=== PATIENT | male | born 1955 | race African-American/Black ===

== ENCOUNTER 2016-06-07 10:13 | Emergency (ER) | payer BC ==
[~2016-06-07] VITALS: Ht 167.6 cm; Wt 63.5 kg
--- NOTE | 2016-06-07 10:38 | PHYS DOC ---
Past Medical History Past Medical History: No Pertinent History Past Surgical History: Other Additional Past Surgical Histo: right 3-5th fingers Alcohol Use: None Drug Use: None Adult General Chief Complaint Chief Complaint: COUGH HPI HPI Patient is a 60 year old male who presents with a productive cough and sore throat intermittently for 3 weeks. Patient denies any fever. Patient is also complaining of shortness of breath on exertion. Patient states he believes he has influenza. Patient denies any chest pain. Denies any significant previous medical history. Patient denies any history of smoking. PCP is Dr. Walker Review of Systems Review of Systems Constitutional: see HPI Eyes: Denies change in visual acuity, redness, or eye pain [] HENT: sore throat [] Respiratory: cough and shortness of breath [] Cardiovascular: No additional information not addressed in HPI [] GI: Denies abdominal pain, nausea, vomiting, bloody stools or diarrhea [] : Denies dysuria or hematuria [] Musculoskeletal: Denies back pain or joint pain [] Integument: Denies rash or skin lesions [] Neurologic: Denies headache, focal weakness or sensory changes [] Endocrine: Denies polyuria or polydipsia [] Current Medications Current Medications Current Medications Medications (Trade) Dose Ordered Sig/Lora Start Time Stop Time Status Last Admin Dose Admin Albuterol/ Ipratropium (Duoneb) 3 ml 1X ONCE 06/07/16 10:45 06/07/16 10:46 DC 06/07/16 11:36 3 ML Azithromycin (Zithromax 500mg Ivpb For Omni) 250 ml @ 250 mls/hr 1X ONCE 06/07/16 12:00 06/07/16 12:59 DC Benzonatate 100 mg 100 mg 1X ONCE 06/07/16 10:45 06/07/16 10:46 DC 06/07/16 11:04 100 MG Ceftriaxone Sodium 50 ml @ 100 mls/hr 1X ONCE 06/07/16 12:00 06/07/16 12:29 DC Lidocaine HCl (Viscous Lidocaine) 15 ml 1X ONCE 06/07/16 10:45 06/07/16 10:46 DC 06/07/16 11:04 15 ML Prednisone (Prednisone) 60 mg 1X ONCE 06/07/16 10:45 06/07/16 10:46 DC 06/07/16 11:04 60 MG Allergies Allergies Allergies Coded Allergies Type Severity Reaction Last Updated Verified No Known Drug Allergies 06/07/16 No Physical Exam Physical Exam Constitutional: Well developed, well nourished, no acute distress, non-toxic appearance. [] HENT: Normocephalic, atraumatic, bilateral external ears normal, oropharynx moist, no oral exudates, nose normal. [] Eyes: PERRLA, EOMI, conjunctiva normal, no discharge. [] Neck: Normal range of motion, no tenderness, supple, no stridor. [] Cardiovascular:Heart rate regular rhythm, no murmur [] Lungs & Thorax: Bilateral breath sounds clear to auscultation [] Abdomen: Bowel sounds normal, soft, no tenderness, no masses, no pulsatile masses. [] Skin: Warm, dry, no erythema, no rash. [] Back: No tenderness, no CVA tenderness. [] Extremities: No tenderness, no cyanosis, no clubbing, ROM intact, no edema. [] Neurologic: Alert and oriented X 3, normal motor function, normal sensory function, no focal deficits noted. [] Psychologic: Affect normal, judgement normal, mood normal. [] Current Patient Data Vital Signs Vital Signs Date Time Temp Pulse Resp B/P Pulse Ox O2 Delivery O2 Flow Rate FiO2 06/07/16 12:55 74 18 135/88 95 Room Air 06/07/16 10:16 97.8 97.8 Lab Values Laboratory Tests Test 06/07/16 10:52 06/07/16 10:55 Influenza Type A Antigen Negative (NEGATIVE) Influenza Type B Antigen Negative (NEGATIVE) White Blood Count 5.8x10^3/uL (4.0-11.0) Red Blood Count 5.01x10^6/uL (4.30-5.70) Hemoglobin 13.8g/dL (13.0-17.5) Hematocrit 41.8% (39.0-53.0) Mean Corpuscular Volume 84fL (79-100) Mean Corpuscular Hemoglobin 28pg (25-35) Mean Corpuscular Hemoglobin Concent 33g/dL (31-37) Red Cell Distribution Width 13.4% (11.5-14.5) Platelet Count 358x10^3/uL (140-400) Neutrophils (%) (Auto) 73% (31-73) Lymphocytes (%) (Auto) 12% (24-48) L Monocytes (%) (Auto) 12% (0-9) H Eosinophils (%) (Auto) 2% (0-3) Basophils (%) (Auto) 1% (0-3) Neutrophils # (Auto) 4.2x10^3uL (1.8-7.7) Lymphocytes # (Auto) 0.7x10^3/uL (1.0-4.8) L Monocytes # (Auto) 0.7x10^3/uL (0.0-1.1) Eosinophils # (Auto) 0.1x10^3/uL (0.0-0.7) Basophils # (Auto) 0.0x10^3/uL (0.0-0.2) Prothrombin Time 13.6SEC (11.7-14.0) Prothrombin Time INR 1.1 (0.8-1.1) D-Dimer (Aylin) 0.40ug/mlFEU (0.00-0.50) Sodium Level 144mmol/L (136-145) Potassium Level 4.4mmol/L (3.5-5.1) Chloride Level 106mmol/L (98-107) Carbon Dioxide Level 30mmol/L (21-32) Anion Gap 8 (6-14) Blood Urea Nitrogen 22mg/dL (8-26) Creatinine 1.4mg/dL (0.7-1.3) H Estimated GFR (Cockcroft-Gault) 62.6 Glucose Level 100mg/dL (70-99) H Calcium Level 9.0mg/dL (8.5-10.1) Creatine Kinase 175U/L (39-308) Creatine Kinase MB (Mass) 0.8ng/mL (0.0-3.6) Creatine Kinase MB Relative Index 0.5% (0-4) Troponin I Quantitative < 0.017ng/mL (0.000-0.055) SR-Qrx-X-Type Natriuretic Peptide 60pg/mL (0-124) Laboratory Tests 06/07/16 10:55 Laboratory Tests 06/07/16 10:55 EKG EKG [] Radiology/Procedures Radiology/Procedures []PROCEDURE: CHEST AP ONLY Portable chest, 06/07/2016: History: Cough, throat pain The heart is within normal limits in size. There are moderate patchy bilateral pulmonary infiltrates. The underlying pulmonary vascularity appears to be within normal limits. No pleural fluid is seen. There is a mild thoracolumbar scoliosis. IMPRESSION: Moderate patchy bilateral pulmonary infiltrates suggesting pneumonia. Correlation with previous chest radiographs and/or radiographic follow-up is suggested to exclude chronic lung disease. DICTATED and SIGNED BY: PRIYA LEONARD MD DATE: 06/07/16 1053 CC: SHITAL WYNNE APRN ~ Course & Med Decision Making Course & Med Decision Making Pertinent Labs and Imaging studies reviewed. (See chart for details) Patient is in the ED with complaints of a productive cough and shortness of breath on exertion for one month. He was also complaining of a sore throat. CBC no acute findings, CMP with no acute findings. Negative for influenza A or B. Chest x-ray was noted for pneumonia bilaterally. Vitals are stable with O2 sats at 99%. Received Rocephin IV and first dose of clarithromycin. Patient was discharged with clarithromycin for 7 days. Instructed to follow-up with the PCP in 7 days. Provided return precautions Dragon Disclaimer Dragon Disclaimer This electronic medical record was generated, in whole or in part, using a voice recognition dictation system. Departure Departure Impression: Primary Impression: Community acquired pneumonia Disposition: 01 HOME, SELF-CARE Condition: STABLE Patient Instructions: Pneumonia, Adult Additional Instructions: Your chest x-ray shows you have pneumonia. Please take the prescribed antibiotics until they're completed. Come back to the ED at any point symptoms worsen including but not limited to having trouble breathing, chest pain, inability to take the medications prescribed. Follow-up with your doctor in the next 7 days. Scripts Guaifenesin/Codeine Phosphate (Guaifenesin-Codeine Syrup)118 Ml Liquid5 Ml PO Q6HRS #120 ML Prov:SHITAL WYNNE APRN 06/07/16 Albuterol Sulfate (Proair Respiclick)90 Mcg Aer.pow.ba1 Puff IH PRN Q6HRS PRN SHORTNESS OF BREATH #1 INHALER Prov:SHITAL WYNNE APRN 06/07/16 Clarithromycin 500 Mg Tablet1 Tab PO BID #14 TAB Prov:SHITAL WYNNE APRN 06/07/16 SHITAL WYNNE APRN Jun 07, 2016 10:38
[2016-06-07] MEDS ORDERED: PREDNISONE 20 MG TABLET PO ONE (10:45)
[2016-06-07] MEDS ORDERED: IPRATRPIUM/ALBUTEROL 0.5/2.5MG 3 ML NEBU. NEB ONE (10:45)
[2016-06-07] MEDS ORDERED: LIDOCAINE 2% VISCOUS 15 ML SOLUTION. SWSW ONE (10:45)
[2016-06-07] MEDS ORDERED: BENZONATATE 100 MG CAPSULE. PO ONE (10:45)
--- NOTE | 2016-06-07 10:57 | RAD ---
Portable chest, 06/07/2016: History: Cough, throat pain The heart is within normal limits in size. There are moderate patchy bilateral pulmonary infiltrates. The underlying pulmonary vascularity appears to be within normal limits. No pleural fluid is seen. There is a mild thoracolumbar scoliosis. IMPRESSION: Moderate patchy bilateral pulmonary infiltrates suggesting pneumonia. Correlation with previous chest radiographs and/or radiographic follow-up is suggested to exclude chronic lung disease.
[2016-06-07 11:13] LABS: BASO % 1 % (0-3); EOS % 2 % (0-3); HEMATOCRIT 41.8 % (39.0-53.0); HEMOGLOBIN 13.8 g/dL (13.0-17.5); LYMPH # 0.7 x10^3/uL (1.0-4.8); LYMPH % 12 % (24-48); MEAN CORPUSCULAR HEMOGLOBIN 28 pg (25-35); MEAN CORPUSCULAR HGB CONC 33 g/dL (31-37); MEAN CORPUSCULAR VOLUME 84 fL (79-100); MONO % 12 % (0-9); NEUT % 73 % (31-73); PLATELET COUNT 358 x10^3/uL (140-400); RED BLOOD COUNT 5.01 x10^6/uL (4.30-5.70); RED CELL DISTRIBUTION WIDTH 13.4 % (11.5-14.5); WHITE BLOOD COUNT 5.8 x10^3/uL (4.0-11.0)
[2016-06-07 11:23] LABS: INR 1.1 (0.8-1.1); PROTHROMBIN TIME PATIENT 13.6 SEC (11.7-14.0)
[2016-06-07 11:25] LABS: OBC FLU VALID
[2016-06-07 11:54] LABS: CREATININE 1.4 mg/dL (0.7-1.3); GFR 62.6; POTASSIUM 4.4 mmol/L (3.5-5.1)
--- NOTE | 2016-06-07 11:55 | EKG ---
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
[2016-06-07 12:00] LABS: CKMB INDEX 0.5 % (0-4); CKMB MASS 0.8 ng/mL (0.0-3.6)
[2016-06-07] MEDS ORDERED: CEFTRIAXONE 1GM IVPB FOR OMNI 50 ML IV ONE (12:00)
[2016-06-07] MEDS ORDERED: AZITHRMYCN 500MG IVPB FOR OMNI 250 ML IV ONE (12:00)
[2016-06-07] MEDS ORDERED: PROAIR RESPICL90 MCG IH (13:13)
[2016-06-07] MEDS ORDERED: CLAR500T PO (13:13)
[2016-06-07] MEDS ORDERED: GUAI118L13 PO (13:13)
[2016-06-07] MEDS ORDERED: CLARITHROMYCIN 500 MG TABLET PO STA (13:16)
[2016-06-07 13:20] LABS: NEGATIVE OBC STREP NEG; POSITIVE OBC STREP POS
[2016-06-07 13:23] VITALS: BP 141/93
== END 2016-06-07 13:42 | disposition home or self-care (01) ==
LOC: ER 10:13
DX: J18.9 Pneumonia, unspecified organism (principal)
CPT/HCPCS: 36415; 71010; 80048; 82553; 83880; 84484; 85027; 85379; 85610; 87070; 87804; 87880; 93005; 94640; 96365; 99285; J0690; J7512; J7620

== ENCOUNTER 2016-08-05 17:53 | Inpatient (IN) | payer BC ==
[~2016-08-05] VITALS: Ht 167.6 cm; Wt 57.2 kg
[~2016-08-05 17:53] MED LIST: CLAR500T PO; GUAI118L13 PO; PROAIR RESPICL90 MCG IH
--- NOTE | 2016-08-05 18:49 | ED.ADGEN ---
Past Medical History Past Medical History: Pneumonia Past Surgical History: Other Additional Past Surgical Histo: right 3-5th fingers Alcohol Use: None Drug Use: None Adult General Chief Complaint Chief Complaint: SHORTNESS OF BREATH HPI HPI Patient is a 60 year old man, who was recently treated for community acquired pneumonia, who presents to the emergency department with 2 weeks of cough productive of white sputum, with worsening shortness of breath and generalized malaise. He denies any fevers or chills, denies sick contacts, any travel or other exposures. Denies any weakness, numbness or tingling that is focal. Denies any chest pain except with coughing. Patient states that at this point he is unable to even walk from his bed to the bathroom without becoming short of breath and bringing on a significant amount of coughing. He has a remote history of tobacco use, but does not smoke currently. Denies any history of DVT or PE. Review of Systems Review of Systems Constitutional: Denies fever or chills. [] Eyes: Denies change in visual acuity. [] HENT: Denies nasal congestion or sore throat. [] Respiratory: Cough productive of thick white sputum, shortness of breath worsening over the past 2 weeks. Cardiovascular: Chest pain with cough, no edema. GI: Denies abdominal pain, nausea, vomiting, bloody stools or diarrhea. [] : Denies dysuria. [] Musculoskeletal: Denies back pain or joint pain. [] Integument: Denies rash. [] Neurologic: Denies headache, focal weakness or sensory changes. [] Endocrine: Denies polyuria or polydipsia. [] Lymphatic: Denies swollen glands. [] Psychiatric: Denies depression or anxiety. [] Allergies Allergies Allergies Coded Allergies Type Severity Reaction Last Updated Verified No Known Drug Allergies 06/07/16 No Physical Exam Physical Exam Constitutional: Well developed, well nourished, no acute distress, non-toxic appearance. [] HENT: Normocephalic, atraumatic, bilateral external ears normal, oropharynx moist, no oral exudates, nose normal. [] Eyes: PERRLA, EOMI, conjunctiva normal, no discharge. [] Neck: Normal range of motion, no tenderness, supple, no stridor. [] Cardiovascular:Heart rate regular rhythm, no murmur, S1, S2, no rubs or gallops. Lungs & Thorax: Patient with diminished breath sounds at bases bilaterally, mild coarse breath sounds in the right lung base, no wheezing. [] Abdomen: Bowel sounds normal, soft, no tenderness, no rebound, rigidity, no guarding, no masses, no pulsatile masses. [] Skin: Warm, dry, no erythema, no rash. [] Back: No tenderness, no CVA tenderness. [] Extremities: No tenderness, no cyanosis, no clubbing, ROM intact, no edema. Negative Homans sign. I [] Neurologic: Alert and oriented X 3, normal motor function, normal sensory function, no focal deficits noted. [] Psychologic: Affect normal, judgement normal, mood normal. [] Current Patient Data Vital Signs Vital Signs Date Time Temp Pulse Resp B/P (MAP) Pulse Ox O2 Delivery O2 Flow Rate FiO2 08/05/16 19:23 74 23 125/77 (93) 98 Room Air 08/05/16 18:35 98.3 98.3 Lab Values Laboratory Tests Test 08/05/16 18:58 White Blood Count 6.8 x10^3/uL (4.0-11.0) Red Blood Count 4.96 x10^6/uL (4.30-5.70) Hemoglobin 14.1 g/dL (13.0-17.5) Hematocrit 41.4 % (39.0-53.0) Mean Corpuscular Volume 83 fL (79-100) Mean Corpuscular Hemoglobin 28 pg (25-35) Mean Corpuscular Hemoglobin Concent 34 g/dL (31-37) Red Cell Distribution Width 13.4 % (11.5-14.5) Platelet Count 306 x10^3/uL (140-400) Neutrophils (%) (Auto) 76 % (31-73) H Lymphocytes (%) (Auto) 12 % (24-48) L Monocytes (%) (Auto) 11 % (0-9) H Eosinophils (%) (Auto) 1 % (0-3) Basophils (%) (Auto) 1 % (0-3) Neutrophils # (Auto) 5.2 x10^3uL (1.8-7.7) Lymphocytes # (Auto) 0.8 x10^3/uL (1.0-4.8) L Monocytes # (Auto) 0.7 x10^3/uL (0.0-1.1) Eosinophils # (Auto) 0.1 x10^3/uL (0.0-0.7) Basophils # (Auto) 0.0 x10^3/uL (0.0-0.2) Sodium Level 140 mmol/L (136-145) Potassium Level 3.7 mmol/L (3.5-5.1) Chloride Level 104 mmol/L (98-107) Carbon Dioxide Level 31 mmol/L (21-32) Anion Gap 5 (6-14) L Blood Urea Nitrogen 17 mg/dL (8-26) Creatinine 1.0 mg/dL (0.7-1.3) Estimated GFR (Cockcroft-Gault) 92.2 BUN/Creatinine Ratio 17 (6-20) Glucose Level 105 mg/dL (70-99) H Calcium Level 9.1 mg/dL (8.5-10.1) Total Bilirubin 0.6 mg/dL (0.2-1.0) Aspartate Amino Transferase (AST) 23 U/L (15-37) Alanine Aminotransferase (ALT) 22 U/L (16-63) Alkaline Phosphatase 69 U/L (46-116) Troponin I Quantitative < 0.017 ng/mL (0.000-0.055) QQ-Xzw-Z-Type Natriuretic Peptide 178 pg/mL (0-124) H Total Protein 8.2 g/dL (6.4-8.2) Albumin 3.2 g/dL (3.4-5.0) L Albumin/Globulin Ratio 0.6 (1.0-1.7) L Laboratory Tests 08/05/16 18:58 Laboratory Tests 08/05/16 18:58 EKG EKG EC: Sinus rhythm, heart rate 81 bpm, QTC of 420, CT 174, QRS of 128, mild baseline artifact noted, right bundle-branch block noted with repolarization, abnormal ECG, does not meet STEMI criteria. As interpreted by me. [] Radiology/Procedures Radiology/Procedures Chest x-ray: PA and lateral: 2 view: Patient with diffuse interstitial patchy infiltrates bilaterally, no significant change from patient's previous x-ray. No pneumothorax, normal cardiac silhouette, no effusions. As interpreted by me. [] Course & Med Decision Making Course & Med Decision Making Pertinent Labs and Imaging studies reviewed. (See chart for details) Patient complaining of worsening dyspnea with exertion, chest x-rays concerning for bilateral infiltrates, after discussion with patient bedside, all the laboratory studies are reveal any acutely concerning findings, will admit and change antibiotics to healthcare associated treatment, as patient was admitted to the Hospital about a month ago with similar symptoms and treated for community acquired pneumonia with recurrence of symptoms at this time. Patient agreeable with plan, initiated IV antibiotic in the ED without issue. Findings as above discussed with Dr. Small, on-call for the patient's primary care provider, patient accepted to her service as a full admission Patient has not previously been evaluated by pulmonary, therefore a consult was placed for Dr. Trejo for additional evaluation be performed. Patient received DuoNeb in the emergency department, will continue duo nebs, and supportive treatment, patient resting comfortably in sinus rhythm on the monitor, at time of transfer to the floor. Dragon Disclaimer Dragon Disclaimer This electronic medical record was generated, in whole or in part, using a voice recognition dictation system. Departure Impression: Primary Impression: HCAP (healthcare-associated pneumonia) Disposition: 09 ADMITTED INPATIENT Admitting Physician: Chris Small Condition: IMPROVED MITA PARR DO August 05, 2016 18:49
[2016-08-05 19:11] LABS: BASO % 1 % (0-3); EOS % 1 % (0-3); HEMATOCRIT 41.4 % (39.0-53.0); HEMOGLOBIN 14.1 g/dL (13.0-17.5); LYMPH # 0.8 x10^3/uL (1.0-4.8); LYMPH % 12 % (24-48); MEAN CORPUSCULAR HEMOGLOBIN 28 pg (25-35); MEAN CORPUSCULAR HGB CONC 34 g/dL (31-37); MEAN CORPUSCULAR VOLUME 83 fL (79-100); MONO % 11 % (0-9); NEUT % 76 % (31-73); PLATELET COUNT 306 x10^3/uL (140-400); RED BLOOD COUNT 4.96 x10^6/uL (4.30-5.70); RED CELL DISTRIBUTION WIDTH 13.4 % (11.5-14.5); WHITE BLOOD COUNT 6.8 x10^3/uL (4.0-11.0)
[2016-08-05 19:22] LABS: CALCIUM 9.1 mg/dL (8.5-10.1); GFR 92.2; POTASSIUM 3.7 mmol/L (3.5-5.1)
[2016-08-05 19:27] LABS: ALBUMIN 3.2 g/dL (3.4-5.0); ALBUMIN/GLOBULIN RATIO 0.6 (1.0-1.7); TOTAL BILIRUBIN 0.6 mg/dL (0.2-1.0); TOTAL PROTEIN 8.2 g/dL (6.4-8.2)
[2016-08-05] MEDS: CEFEPIME HCL 2 GM in IV NORMAL SALINE 100ML 100 ML IV SCH (20:16)
[2016-08-05] MEDS ORDERED: IPRATRPIUM/ALBUTEROL 0.5/2.5MG 3 ML NEBU. NEB ONE (20:30)
[2016-08-05] MEDS ORDERED: VANCOMYCIN 1.5 GM in IV NORMAL SALINE 500ML BAG 500 ML IV ONE (20:30)
[2016-08-05] MEDS: VANCOMYCIN PER PHARMACY MC PRN (20:57)
[2016-08-05 23:00] VITALS: BP 130/79
[2016-08-05] MEDS ORDERED: ACETAMINOPHEN 325 MG TABLET. PO PRN (23:00)
[2016-08-05] MEDS ORDERED: ONDANSETRON PF 4 MG/2 ML VIAL. IV PRN (23:00)
--- NOTE | 2016-08-06 02:01 | ACF ---
Admit Criteria Forms Admit Criteria Forms Admit Criteria Forms PULMONARY DISEASE GRG Clinical Indications for Admission to Inpatient Care ( Place 'X' for any and all applicable criteria): Hospital admission is needed for appropriate care of the patient because of ANY ONE of the following(1): [ ]I. Impending or actual respiratory arrest ( Use Respiratory Failure Criteria for severe respiratory disease and long-term mechanical ventilation patients) (4) [ ]II. Severe airflow or ventilation abnormalities (not responsive to emergency and observation care treatment as appropriate) as indicated by ANY ONE of the following(5)(6)(7)(8) : [ ]a) PCO2 > 42 mm Hg (5.6 kPa) and pH < 7.35 (new) [ ]b) Documented PCO2 increase > 5 mm Hg (0.7 kPa) from disease baseline [ ]c) Airflow measurements[A] < 60% of previous best or predicted ( e.g., PEF <300 L/minute) despite intensive emergent treatment[B] [ ]d) Required respiratory treatments that are performable only in acute inpatient setting [ ]III. Severe respiratory findings (not responsive to emergency and observation care treatment as appropriate) including ANY ONE of the following(5)(8)(9): [ ]a) Respiratory distress as indicated by ALL of the following(5)(10): [ ]i) Patient with ANY ONE of the following: [ ]1) Dyspnea (difficulty breathing) [ ]2) Abnormal breathing pattern (eg, chest retractions) [ ]3) Tachypnea [ ]4) Other evidence of difficulty breathing [ ]ii) Evidence of respiratory compromise indicated by ANY ONE of the following: [ ]1) Hypoxemia [ ]2) Altered mental status [ ]3) Other evidence of respiratory compromise (eg, pulmonary edema on chest x-ray) [ ]b) Stridor [ ]c) Gross hemoptysis(11) [ ]d) Acute cyanosis [X ]IV. High-risk pulmonary infection as indicated by ANY ONE of the following (19)(20)(21)(22): [ ]a) Temperature less than 95 degrees F(35 degrees C) or greater than 103.1 degrees F(39.5 degrees C) [ ]b) Hemodynamic instability that remains after emergency or observation level care (as appropriate) [ ]c) Immunocompromised patient (eg, AIDS, post transplant, neutropenic) [ ]d) History of severe COPD [ ]e) History of severely symptomatic congestive heart failure [ ]f) Other high-risk comorbidity (eg, poorly controlled diabetes, cirrhosis, chronic renal insufficiency) [ ]g) Hypoxemia (new) [X]h) Outpatient, observation, or recovery facility therapy has failed, is not appropriate, or is not feasible [ ]V. Severe atelectasis or lung collapse(15)(16) [ ]. Tuberculosis requiring inpatient treatment as indicated by ANY ONE of the following(17)(18): [ ]a) New positive acid-fast bacilli sputum smear [ ]b) Positive acid-fast bacilli smear (under current treatment), with ANY ONE of the following: [ ]i) Unexposed household contacts [ ]ii) Infants or immunosuppressed household contacts [ ]iii) Patient unable or unwilling to avoid exposing others [ ]iv) Severe immunocompromised patient (eg, AIDS, post transplant, neutropenic) [ ]VII. Empyema or lung abscess(13)(14) [ ]VIII. Severe pulmonary arterial hypertension or pulmonary vascular disease requiring inpatient care indicated by ANY ONE of the following(24)(25): [ ]a) Initiation or change of vasodilators (IV, subcutaneous, or inhaled) or other vasoactive medications needed [ ]b) IV anticoagulation needed (eg, immediate anticoagulation necessary, alternatives not appropriate) [ ]c) Arterial or pulmonary artery catheter monitoring needed due to infusion or other treatment [ ]IX. Chronic lung disease with severe deterioration (not responsive to emergency and observation care treatment as appropriate) as indicated by ANY ONE of the following (6)(12): [ ]a) SaO2 5% below baseline in patient with chronic hypoxemia [ ]b) New requirement for supplemental oxygen to keep SaO2 at baseline or acceptable level [ ]c) Required supplemental oxygen performable only in acute inpatient setting [ ]d) Severe airflow or ventilation abnormalities [ ]e) Rapid rate of exacerbation onset [ ]f) Previously mobile patient unable to walk between rooms [ ]g) Inability to eat or sleep due to dyspnea [ ]h) Altered mental status [ ]X. Cystic fibrosis with severe deterioration as indicated by ANY ONE of the following(26)(27): [ ]a) Severe exacerbation that does not respond to intensified home therapy [ ]b) Pneumonia [ ]c) Hemoptysis [ ]d) Atelectasis [ ]e) Pneumothorax [ ]f) Respiratory failure [ ]g) Severe exacerbation with patient unable to perform prescribed treatments at home [ ]XI. Severe right heart failure as indicated by ANY ONE of the following(24) (25): [ ]a) Increasing organ failure (eg, liver congestion with significant and worsening or new elevation of transaminases) [ ]b) Anasarca [ ]c) Angina that requires inpatient care (eg, not treatable in emergency or observation level of care) [ ]d) Respiratory distress [ ]e) Syncope [ ]f) SBP < 90 mm Hg (new) [ ]XII. Injury requiring inpatient care (medical) as indicated by ANY ONE of the following(28): [ ]a) Significant inhalation injury (eg, smoke inhalation, other toxic inhalation) (29)(30)(31) [ ]b) Airway obstruction that remains or is unstable after emergency or observation level care(32) [ ]c) Severe pain requiring acute inpatient management [ ]d) Lung contusion [ ]e) Bronchial tree injury [ ]f) Air or fat emboli(33) [ ]g) Other injury not treatable in emergency or observation level care (eg, hemothorax) (34) [ ]XIII. Pulmonary hemorrhage or significant hemoptysis(11)(35)(36) [ ]XIV. Inpatient palliative care needed[C](37)(38)(39)(40) [ ]XV. Complications of lung transplant (eg, rejection, failure, respiratory infection) (23) [ ]XVI. Pulmonary Disease and ANY ONE of the following: [ ]a) General Admission Criteria [ ]b) Pediatric General Admission Criteria The original [facility] content created by [facility] has been revised. The portions of the content which have been revised are identified through the use of italic text or in bold, and [facility] has neither reviewed nor approved the modified material. All other unmodified content is copyright [facility]. Please see references footnoted in the original [facility] edition 2016 KEITH MANDEL August 06, 2016 02:01
[2016-08-06 03:00] VITALS: BP 115/83
[2016-08-06 05:18] LABS: BASO % 1 % (0-3); EOS % 3 % (0-3); HEMATOCRIT 40.1 % (39.0-53.0); HEMOGLOBIN 13.6 g/dL (13.0-17.5); LYMPH # 0.9 x10^3/uL (1.0-4.8); LYMPH % 20 % (24-48); MEAN CORPUSCULAR HEMOGLOBIN 29 pg (25-35); MEAN CORPUSCULAR HGB CONC 34 g/dL (31-37); MEAN CORPUSCULAR VOLUME 84 fL (79-100); MONO % 15 % (0-9); NEUT % 61 % (31-73); PLATELET COUNT 280 x10^3/uL (140-400); RED BLOOD COUNT 4.78 x10^6/uL (4.30-5.70); RED CELL DISTRIBUTION WIDTH 13.6 % (11.5-14.5); WHITE BLOOD COUNT 4.4 x10^3/uL (4.0-11.0)
[2016-08-06 05:42] LABS: CALCIUM 8.6 mg/dL (8.5-10.1); CREATININE 0.8 mg/dL (0.7-1.3); GFR 119.3; POTASSIUM 3.8 mmol/L (3.5-5.1)
[2016-08-06] MEDS: CEFEPIME HCL 2 GM in IV NORMAL SALINE 100ML 100 ML IV SCH ×3 (05:51→22:00)
--- NOTE | 2016-08-06 06:17 | EKG ---
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
[2016-08-06 07:00] VITALS: BP 124/78
[2016-08-06] MEDS: IPRATRPIUM/ALBUTEROL 0.5/2.5MG 3 ML NEBU. NEB SCH ×4 (07:45→19:22)
[2016-08-06] MEDS: VANCOMYCIN 750 MG in IV NORMAL SALINE 250ML 250 ML IV SCH ×2 (08:08→20:38)
--- NOTE | 2016-08-06 08:41 | RAD ---
Chest, 2 views, 08/05/2016: History: Shortness of breath, cough Comparison is made to a study from 08/01/2016. The heart is within normal limits in size. There are moderate reticulonodular interstitial type opacities in both lungs with dominant involvement of the lower lung dixon. These have been present on radiographs dating back to 06/07/2016 with no definite change. There is no evidence of pleural fluid or pneumothorax. No new abnormality is detected. There is a mild thoracolumbar scoliosis. IMPRESSION: Unchanged moderate bilateral interstitial opacities suggesting chronic interstitial lung disease.
[2016-08-06 11:00] VITALS: BP 113/67
--- NOTE | 2016-08-06 12:20 | PDOC ---
OBJECTIVE Vital Signs Vital Signs Date Time Temp Pulse Resp B/P (MAP) Pulse Ox O2 Delivery O2 Flow Rate FiO2 08/06/16 11:26 95 Room Air 08/06/16 11:00 97.6 65 18 113/67 (82) 97 Room Air 97.6 08/06/16 08:00 Room Air 08/06/16 07:49 99 Room Air 08/06/16 07:00 97.8 67 18 124/78 (93) 97 Room Air 97.8 08/06/16 03:00 98.3 63 20 115/83 (94) 96 Room Air 98.3 08/05/16 23:00 97.9 74 20 130/79 (96) 97 Room Air 97.9 08/05/16 22:31 Room Air 08/05/16 21:44 96 Room Air 08/05/16 19:23 74 23 125/77 (93) 98 Room Air 08/05/16 18:53 76 26 128/73 (91) 97 Room Air 08/05/16 18:38 84 28 133/84 (100) 94 Room Air 08/05/16 18:35 98.3 104 24 130/75 (93) 95 Room Air 98.3 I & O Intake and Output 08/06/16 06:59 Intake Total 200 ml Output Total 0 ml Balance 200 ml Intake Oral 0 ml IV Total 200 ml Output Urine Total 0 ml ASSESSMENT/PLAN Assessment/Plan [id number] H&P dictated Problems: COMMENT Lab Laboratory Tests Test 08/05/16 18:58 08/06/16 04:25 White Blood Count 6.8 x10^3/uL (4.0-11.0) 4.4 x10^3/uL (4.0-11.0) Red Blood Count 4.96 x10^6/uL (4.30-5.70) 4.78 x10^6/uL (4.30-5.70) Hemoglobin 14.1 g/dL (13.0-17.5) 13.6 g/dL (13.0-17.5) Hematocrit 41.4 % (39.0-53.0) 40.1 % (39.0-53.0) Mean Corpuscular Volume 83 fL (79-100) 84 fL (79-100) Mean Corpuscular Hemoglobin 28 pg (25-35) 29 pg (25-35) Mean Corpuscular Hemoglobin Concent 34 g/dL (31-37) 34 g/dL (31-37) Red Cell Distribution Width 13.4 % (11.5-14.5) 13.6 % (11.5-14.5) Platelet Count 306 x10^3/uL (140-400) 280 x10^3/uL (140-400) Neutrophils (%) (Auto) 76 % (31-73) 61 % (31-73) Lymphocytes (%) (Auto) 12 % (24-48) 20 % (24-48) Monocytes (%) (Auto) 11 % (0-9) 15 % (0-9) Eosinophils (%) (Auto) 1 % (0-3) 3 % (0-3) Basophils (%) (Auto) 1 % (0-3) 1 % (0-3) Neutrophils # (Auto) 5.2 x10^3uL (1.8-7.7) 2.7 x10^3uL (1.8-7.7) Lymphocytes # (Auto) 0.8 x10^3/uL (1.0-4.8) 0.9 x10^3/uL (1.0-4.8) Monocytes # (Auto) 0.7 x10^3/uL (0.0-1.1) 0.6 x10^3/uL (0.0-1.1) Eosinophils # (Auto) 0.1 x10^3/uL (0.0-0.7) 0.1 x10^3/uL (0.0-0.7) Basophils # (Auto) 0.0 x10^3/uL (0.0-0.2) 0.0 x10^3/uL (0.0-0.2) Sodium Level 140 mmol/L (136-145) 140 mmol/L (136-145) Potassium Level 3.7 mmol/L (3.5-5.1) 3.8 mmol/L (3.5-5.1) Chloride Level 104 mmol/L (98-107) 105 mmol/L (98-107) Carbon Dioxide Level 31 mmol/L (21-32) 29 mmol/L (21-32) Anion Gap 5 (6-14) 6 (6-14) Blood Urea Nitrogen 17 mg/dL (8-26) 17 mg/dL (8-26) Creatinine 1.0 mg/dL (0.7-1.3) 0.8 mg/dL (0.7-1.3) Estimated GFR (Cockcroft-Gault) 92.2 119.3 BUN/Creatinine Ratio 17 (6-20) Glucose Level 105 mg/dL (70-99) 81 mg/dL (70-99) Calcium Level 9.1 mg/dL (8.5-10.1) 8.6 mg/dL (8.5-10.1) Total Bilirubin 0.6 mg/dL (0.2-1.0) Aspartate Amino Transf (AST/SGOT) 23 U/L (15-37) Alanine Aminotransferase (ALT/SGPT) 22 U/L (16-63) Alkaline Phosphatase 69 U/L (46-116) Troponin I Quantitative < 0.017 ng/mL (0.000-0.055) OD-Krv-F-Type Natriuretic Peptide 178 pg/mL (0-124) Total Protein 8.2 g/dL (6.4-8.2) Albumin 3.2 g/dL (3.4-5.0) Albumin/Globulin Ratio 0.6 (1.0-1.7) NAILA WYNNE MD August 06, 2016 12:20
--- NOTE | 2016-08-06 12:36 | PDOC ---
Provider Note Provider Note dictated persistent lung disease, could be diffuse alveolar damage due to crack cocaine vs stage III sarcoidosis see orders DEISY GRUBER MD August 06, 2016 12:36
[2016-08-06] MEDS ORDERED: IOHEXOL 300 MG/ML 75 ML VIAL IV ONE (13:15)
--- NOTE | 2016-08-06 13:29 | CONS ---
DATE OF CONSULTATION: ATTENDING PHYSICIAN: Dr. Chris Small. REASON FOR CONSULTATION: Abnormal chest x-ray, cough and dyspnea. HISTORY OF PRESENT ILLNESS: The patient is a 60-year-old male who has been having shortness of breath for the past 2 months. He also has a nonresolving cough for the same duration with some mild shortness of breath. He has a history of cocaine use for 10 years; he quit one year ago. The patient was brought into the hospital with increasing dyspnea and a persistent cough. No fever, no chills, cough has been nonproductive, no weight loss. The patient has a remote history of tobacco use. He works for [employer]. No occupational exposures. The patient has no pets at home. No history of any interstitial lung disease. I reviewed his chest x-ray from May and now as well and all the x-ray shows persistent bilateral interstitial infiltrates with one versus the other with slight worsening. He never had any workup of interstitial lung disease in the past admission. 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 PAST SURGICAL HISTORY: As above. ALLERGIES: None. MEDICATIONS: All reviewed as listed in the MRAD, including broad spectrum antibiotic. REVIEW OF SYSTEMS: Twelve-point systems review was obtained, pertinent positives discussed in history of present illness, otherwise noncontributory. All systems that were negative were reviewed as well. SOCIAL HISTORY: History of inhalation of crack cocaine for 10 years and history of tobacco use in the past. PHYSICAL EXAMINATION: VITAL SIGNS: Blood pressure of 113/67, afebrile, pulse ox is 97% on room air. NECK: Supple. No JVD. LUNGS: With crackles at both the bases. CARDIOVASCULAR: Regular rate and rhythm. ABDOMEN: Soft. EXTREMITIES: With no pitting edema. There are amputations of his right third to fifth fingers. LABORATORY DATA: Reviewed. White cell count 4.4, hemoglobin 13.6 and platelets are 280. BUN is 17, creatinine 0.8. Albumin 3.2. IMPRESSION: 1. Persistent dyspnea and cough for the last 2 months with persistent interstitial infiltrates since 05/2016. I think we are dealing with interstitial lung disease. The following would be the differential diagnosis: a. Possibility of diffuse alveolar damage related to inhalation of crack cocaine b. Possible sarcoidosis would also be a consideration. 2. Clinically, unlikely other connective tissue disease related to interstitial lung disease. 3. Less likely pneumonia. RECOMMENDATIONS: 1. Discussed with the patient his abnormal chest x-ray findings. At this point, I would like to do a CT chest with contrast. 2. Once CT chest findings are available, we will decide about it, either a trial of steroids versus going with lung biopsy. 3. Obtain sed rate. 4. The patient no longer does crack cocaine. 5. Continue empiric antibiotics for now. 6. Further recommendations to follow after the CT chest. DEISY GRUBER MD DR: MALIKA/mere JOB#: [id number] / [id number] SAMY
--- NOTE | 2016-08-06 14:05 | PREOP HP ---
DATE OF SERVICE: [facility] NUMBER: [id number]. LOCATION: He is in room 510. HISTORY OF PRESENT ILLNESS: The patient is a 60-year-old gentleman who recently was discharged from the hospital after being treated for community-acquired pneumonia, presented to the Emergency Room yesterday with increasing shortness of breath and cough over the last couple of weeks. He quit smoking about 6 months ago, but has smoked for many years before that. He does state that his cough is productive of white sputum and sometimes a dry cough. He does have worsening shortness of breath, generalized fatigue. He denies fever or chills. Denies being around sick people. Denies any recent travel or exposure. Denies focal changes in his sensory or motor function. Denies chest pain except when he is coughing. Denies pleuritic chest pain. He stated that his level of activities has decreased due to the shortness of breath and coughing. He denies history of DVT or pulmonary embolus. PAST MEDICAL HISTORY: Significant for pneumonia and COPD. REVIEW OF SYSTEMS: CONSTITUTIONAL: Denies fever or chills. Denies weight loss. EYES: Denies changes in his vision. HENT: Denies nasal congestion or sore throat. RESPIRATORY: He does have cough productive of thick whitish sputum, shortness of breath, worsening in the past 2 weeks. CARDIOVASCULAR: Denies chest pain except when he is coughing, no edema. GASTROINTESTINAL: Denies nausea, vomiting, abdominal pain, or diarrhea. GENITOURINARY: Denies dysuria. MUSCULOSKELETAL: Denies joint pain more than usual. NEUROLOGIC: Denies focal weakness or sensory changes. DERMATOLOGY: Denies rashes. PHYSICAL EXAMINATION: GENERAL: He is alert and oriented. HEENT: His tympanic membranes clear. Pharynx clear. Mucous membranes slightly dry. NECK: Supple. LUNGS: With diminished breath sounds bilaterally. Mild coarse breath sounds, no wheezes. HEART: Regular rate and rhythm. ABDOMEN: Soft, nontender, no organomegaly, no masses, no bruits, no ascites. EXTREMITIES: No edema, clubbing, or cyanosis. NEUROLOGICAL: Without any acute changes. IMPRESSION: 1. Bilateral infiltrates, possible pulmonary fibrosis. This has not changed comparing to his prior chest x-ray rule out another pneumonia. 2. Chronic obstructive pulmonary disease. 3. Increasing shortness of breath and cough. PLAN: The patient is admitted, started on antibiotic. Pulmonary was consulted. NAILA WYNNE MD DR: MIKE/mere JOB#: [id number] / [id number]
[2016-08-06] MEDS: VANCOMYCIN PER PHARMACY MC PRN (14:18)
[2016-08-06 15:00] VITALS: BP 131/71
--- NOTE | 2016-08-06 15:40 | RAD ---
Examination: CT chest with IV contrast History: History of diffuse interstitial lung disease, shortness of breath. Comparison: None available Technique: Axial CT images of the chest were performed with IV contrast. Coronal and sagittal reformats were performed. PQRS Compliance Statement: One or more of the following individualized dose reduction techniques were utilized for this examination: 1. Automated exposure control 2. Adjustment of the mA and/or kV according to patient size 3. Use of iterative reconstruction technique Findings: The heart size grossly appears unremarkable. The central airways are patent. The visualized thyroid gland grossly appears unremarkable. The caliber of the aorta grossly appears unremarkable. No evidence of pericardial effusion identified. Mild prominent appearing bilateral hilar lymphadenopathy identified measuring 2 cm on the right and 1.4 cm in the left Diffuse bilateral prominent interlobular septal thickening with prominent interstitial lung markings identified in the bilateral lungs predominantly in the mid and lower lobe lung regions. No evidence of pleural effusion or pneumothorax identified Mild bronchiectatic changes identified in the bilateral lungs. No evidence of pleural effusion or pneumothorax identified The visualized liver, spleen, adrenals grossly appears unremarkable No evidence of lytic bony destructive lesion identified. Impression: 1. Diffuse bilateral septal thickening with prominent appearing interstitium. Differential includes sarcoidosis, hypersensitivity pneumonitis, respiratory bronchiolitis, interstitial fibrosis with overlying interstitial infiltrates or pneumonia. 2. Mild bronchiectatic changes identified in the bilateral lungs. 3. Small bilateral hilar lymphadenopathy.
[2016-08-06 19:00] VITALS: BP 125/76
[2016-08-06 23:05] VITALS: BP 141/94
[2016-08-07 03:00] VITALS: BP 128/79
[2016-08-07] MEDS: CEFEPIME HCL 2 GM in IV NORMAL SALINE 100ML 100 ML IV SCH ×3 (04:53→20:53)
[2016-08-07 07:00] VITALS: BP 125/79
[2016-08-07] MEDS: IPRATRPIUM/ALBUTEROL 0.5/2.5MG 3 ML NEBU. NEB SCH ×2 (07:14→19:59)
--- NOTE | 2016-08-07 09:25 | PDOC ---
PULMONARY PROGRESS NOTES Subjective no soa Vitals Vital Signs Date Time Temp Pulse Resp B/P (MAP) Pulse Ox O2 Delivery O2 Flow Rate FiO2 08/07/16 08:00 Room Air 08/07/16 07:16 96 08/07/16 07:00 97.5 65 18 125/79 (94) 97.5 General: Alert, No acute distress Lungs: Crackles (bases) Cardiovascular: S1 Abdomen: Soft Neuro Exam: Alert Extremities: No Edema Skin: Warm Labs Laboratory Tests Test 08/05/16 18:58 08/06/16 04:25 08/06/16 12:45 08/07/16 08:25 White Blood Count 6.8 x10^3/uL (4.0-11.0) 4.4 x10^3/uL (4.0-11.0) Red Blood Count 4.96 x10^6/uL (4.30-5.70) 4.78 x10^6/uL (4.30-5.70) Hemoglobin 14.1 g/dL (13.0-17.5) 13.6 g/dL (13.0-17.5) Hematocrit 41.4 % (39.0-53.0) 40.1 % (39.0-53.0) Mean Corpuscular Volume 83 fL (79-100) 84 fL (79-100) Mean Corpuscular Hemoglobin 28 pg (25-35) 29 pg (25-35) Mean Corpuscular Hemoglobin Concent 34 g/dL (31-37) 34 g/dL (31-37) Red Cell Distribution Width 13.4 % (11.5-14.5) 13.6 % (11.5-14.5) Platelet Count 306 x10^3/uL (140-400) 280 x10^3/uL (140-400) Neutrophils (%) (Auto) 76 % (31-73) 61 % (31-73) Lymphocytes (%) (Auto) 12 % (24-48) 20 % (24-48) Monocytes (%) (Auto) 11 % (0-9) 15 % (0-9) Eosinophils (%) (Auto) 1 % (0-3) 3 % (0-3) Basophils (%) (Auto) 1 % (0-3) 1 % (0-3) Neutrophils # (Auto) 5.2 x10^3uL (1.8-7.7) 2.7 x10^3uL (1.8-7.7) Lymphocytes # (Auto) 0.8 x10^3/uL (1.0-4.8) 0.9 x10^3/uL (1.0-4.8) Monocytes # (Auto) 0.7 x10^3/uL (0.0-1.1) 0.6 x10^3/uL (0.0-1.1) Eosinophils # (Auto) 0.1 x10^3/uL (0.0-0.7) 0.1 x10^3/uL (0.0-0.7) Basophils # (Auto) 0.0 x10^3/uL (0.0-0.2) 0.0 x10^3/uL (0.0-0.2) Sodium Level 140 mmol/L (136-145) 140 mmol/L (136-145) Potassium Level 3.7 mmol/L (3.5-5.1) 3.8 mmol/L (3.5-5.1) Chloride Level 104 mmol/L (98-107) 105 mmol/L (98-107) Carbon Dioxide Level 31 mmol/L (21-32) 29 mmol/L (21-32) Anion Gap 5 (6-14) 6 (6-14) Blood Urea Nitrogen 17 mg/dL (8-26) 17 mg/dL (8-26) Creatinine 1.0 mg/dL (0.7-1.3) 0.8 mg/dL (0.7-1.3) Estimated GFR (Cockcroft-Gault) 92.2 119.3 BUN/Creatinine Ratio 17 (6-20) Glucose Level 105 mg/dL (70-99) 81 mg/dL (70-99) Calcium Level 9.1 mg/dL (8.5-10.1) 8.6 mg/dL (8.5-10.1) Total Bilirubin 0.6 mg/dL (0.2-1.0) Aspartate Amino Transf (AST/SGOT) 23 U/L (15-37) Alanine Aminotransferase (ALT/SGPT) 22 U/L (16-63) Alkaline Phosphatase 69 U/L (46-116) Troponin I Quantitative < 0.017 ng/mL (0.000-0.055) NB-Eni-U-Type Natriuretic Peptide 178 pg/mL (0-124) Total Protein 8.2 g/dL (6.4-8.2) Albumin 3.2 g/dL (3.4-5.0) Albumin/Globulin Ratio 0.6 (1.0-1.7) Erythrocyte Sedimentation Rate 30 (0-15) Vancomycin Level Trough 6.9 mcg/mL (10.0-20.0) Vancomycin Last Dose Date 08/06/16 Vancomycin Last Dose Time 2100 Laboratory Tests Test 08/06/16 12:45 08/07/16 08:25 Erythrocyte Sedimentation Rate 30 (0-15) Vancomycin Level Trough 6.9 mcg/mL (10.0-20.0) Vancomycin Last Dose Date 08/06/16 Vancomycin Last Dose Time 2100 Medications Active Scripts Medications Dose Route/Sig Max Daily Dose Days Date Category Guaifenesin-Codeine Syrup (Guaifenesin/Codeine Phosphate) 118 Ml Liquid 5 Ml PO Q6HRS 06/07/16 Rx Proair Respiclick (Albuterol Sulfate) 90 Mcg Aer.pow.ba 1 Puff IH PRN Q6HRS PRN 06/07/16 Rx Clarithromycin 500 Mg Tablet 1 Tab PO BID 06/07/16 Rx Impression . 1. Persistent dyspnea and cough for the last 2 months with persistent interstitial infiltrates since 05/2016. Ct chest with diffuse interstitial lung disease, mild hilar adenopathy. The following would be the differential diagnosis: a. Possibility of a diffuse alveolar damage related to inhalation of crack cocaine b. Possible stage II sarcoidosis 2. Clinically, unlikely other connective tissue disease related to interstitial lung disease. 3. Less likely pneumonia. Plan . 1. Discussed with the patient his abnormal chest x-ray/ ct chest findings. At this point the etiology is not so obvious. Sarcoidosis is still likely although I would have expected more upper lobe involvement. I gave the option of 6-8 weeks of emperic steroid trial and explained side effects vs persuing with VAT for definite diagnosis 2. Patient agrees for lung biopsy via VAT/ consult [facility] 3. sed rate not so high 4. The patient no longer does crack cocaine. 5. antibiotics can be weaned off DEISY GRUBER MD August 07, 2016 09:25
[2016-08-07] MEDS: VANCOMYCIN PER PHARMACY MC PRN (09:43)
--- NOTE | 2016-08-07 10:18 | PDOC ---
SUBJECTIVE Subjective no new complaints OBJECTIVE Vital Signs Vital Signs Date Time Temp Pulse Resp B/P (MAP) Pulse Ox O2 Delivery O2 Flow Rate FiO2 08/07/16 08:00 Room Air 08/07/16 08:00 Room Air 08/07/16 07:16 96 Room Air 08/07/16 07:00 97.5 65 18 125/79 (94) 97 Room Air 97.5 08/07/16 03:00 97.9 59 20 128/79 (95) 97 Room Air 97.9 08/06/16 23:05 97.9 62 20 141/94 (110) 96 Room Air 97.9 08/06/16 20:00 Room Air 08/06/16 19:23 96 Room Air 08/06/16 19:00 97.9 69 20 125/76 (92) 96 Room Air 97.9 08/06/16 15:42 99 Room Air 08/06/16 15:00 97.0 70 18 131/71 (91) 96 Room Air 97.0 08/06/16 11:26 95 Room Air 08/06/16 11:00 97.6 65 18 113/67 (82) 97 Room Air 97.6 I & O Intake and Output 08/07/16 07:00 Intake Total 1070 ml Output Total 2 ml Balance 1068 ml Intake Oral 720 ml IV Total 350 ml Output Urine Total 2 ml PHYSICAL EXAM Physical Exam lungs with decrease BS no change in exam ASSESSMENT/PLAN Assessment/Plan 1. Bilateral infiltrates, CT noted agree with bronch and Bx 2. Chronic obstructive pulmonary disease. 3. Increasing shortness of breath and cough. Problems: COMMENT Lab Laboratory Tests Test 08/06/16 12:45 08/07/16 08:25 Erythrocyte Sedimentation Rate 30 (0-15) Vancomycin Level Trough 6.9 mcg/mL (10.0-20.0) Vancomycin Last Dose Date 08/06/16 Vancomycin Last Dose Time 2100 NAILA WYNNE MD August 07, 2016 10:18
[2016-08-07] MEDS: VANCOMYCIN 1 GM in IV NORMAL SALINE 250ML 250 ML IV SCH ×2 (10:31→17:56)
[2016-08-07] MEDS ORDERED: IV RINGERS,LACTATED 1000ML 1,000 ML IV SCH (10:35)
[2016-08-07] MEDS ORDERED: PROCHLORPERAZINE 10 MG/2 ML VIAL. IV PRN (10:45)
[2016-08-07] MEDS ORDERED: LIDOCAINE 1% 1 ML SYRINGE. ID PRN (10:45)
[2016-08-07 10:59] VITALS: BP 126/82
--- NOTE | 2016-08-07 11:04 | PDOC2 ---
CONSULT Date of Consult Date of Consult DATE: 08/07/16 TIME: 10:52 Reason for Consult Reason for Consult: Interstitial lung disease Referring Physician Referring Physician: Sudhakar Rose MD Identification/Chief Complaint Chief Complaint SOB Source Source: Chart review, Patient History of Present Illness Reason for Visit: Mr Bautista is a 60-year-old male with a lifelong history of smoking, who presents with a two-month history of increasing shortness of breath and nonproductive cough. He was admitted to the hospital in May for presumed pneumonia. His symptoms have never really resolved, and has recently worsened. The patient also has a history of smoking crack cocaine. A CT of the chest has demonstrated bilateral interstitial infiltrates with some mediastinal lymphadenopathy, consistent with possible interstitial lung disease versus chronic infection. The patient is currently breathing comfortably on room air. I was consulted to consider the patient for a VATS lung biopsy, which would guide us for his treatment. Past Medical History Cardiovascular: No pertinent hx Pulmonary: Pneumonia GI: No pertinent hx Heme/Onc: No pertinent hx Hepatobiliary: No pertinent hx Psych: No pertinent hx Rheumatologic: No pertinent hx Infectious disease: No pertinent hx ENT: No pertinent hx Renal/: No pertinent hx Endocrine: No pertinent hx Dermatology: No pertinent hx Past Surgical History Past Surgical History: No pertinent history Family History Family History: No Significant Social History 1 pack per day ALCOHOL: social Drugs: Cocaine Lives: with Family Current Problem List Problem List Problems Medical Problems: (1) HCAP (healthcare-associated pneumonia) Status: Acute Current Medications Current Medications Current Medications Cefepime HCl 2 gm/ Sodium Chloride 100 ml @ 200 mls/hr Q8HRS IV Last administered on 08/07/16 04:53; Start 08/05/16 at 20:00 Vancomycin HCl (Vanco Per Pharmacy) 1 each PRN DAILY PRN MC SEE COMMENTS Last administered on 08/07/16 09:43; Start 08/05/16 at 20:00 Vancomycin HCl 1.5 gm/Sodium Chloride 500 ml @ 250 mls/hr 1X ONCE IV Last administered on 08/05/16 20:45; Start 08/05/16 at 20:30; Stop 08/05/16 at 22:29 ; Status DC Albuterol/ Ipratropium (Duoneb) 3 ml 1X ONCE NEB Last administered on 21:43; Start 08/05/16 at 20:30; Stop 08/05/16 at 20:31; Status DC Vancomycin HCl 750 mg/Sodium Chloride 250 ml @ 250 mls/hr Q12HR IV Last administered on 08/06/16 20:38; Start 08/06/16 at 09:00; Stop 08/07/16 at 09:31 ; Status DC Vancomycin HCl 1 each 1X ONCE MC Last administered on 08/07/16 08:30; Start 08/07/16 at 08:30; Stop 08/07/16 at 08:31; Status DC Ondansetron HCl (Zofran) 4 mg PRN Q8HRS PRN IV NAUSEA/VOMITING; Start 08/05/16 at 23:00; Stop 08/06/16 at 22:59; Status DC Acetaminophen (Tylenol) 650 mg PRN Q4HRS PRN PO FEVER; Start 08/05/16 at 23:00 ; Stop 08/06/16 at 22:59; Status DC Albuterol/ Ipratropium (Duoneb) 3 ml RTQID NEB Last administered on 08/07/16 07:14; Start 08/06/16 at 08:00; Stop 08/07/16 at 07:59; Status DC Iohexol (Omnipaque 300 Mg/ml) 75 ml 1X ONCE IV Last administered on 08/06/16 13:15; Start 08/06/16 at 13:15; Stop 08/06/16 at 13:16; Status DC Vancomycin HCl 1 gm/Sodium Chloride 250 ml @ 250 mls/hr Q8H IV Last administered on 08/07/16 10:31; Start 08/07/16 at 10:00 Morphine Sulfate 1 mg PRN Q10MIN PRN IV SEVERE PAIN; Start 08/07/16 at 10:45; Stop 08/07/16 at 23:00 Ringer's Solution 1,000 ml @ 0 mls/hr Q0M IV ; Start 08/07/16 at 10:35; Stop at 22:34 Lidocaine HCl 2 ml PRN 1X PRN ID PRIOR TO IV START; Start 08/07/16 at 10:45; Stop 08/07/16 at 23:00 Hydromorphone HCl (Dilaudid) 0.5 mg PRN Q10MIN PRN IV SEV PAIN, Second choice; Start 08/07/16 at 10:45; Stop 08/07/16 at 23:00 Prochlorperazine Edisylate (Compazine) 5 mg PACU PRN PRN IV NAUSEA, MRX1; Start 08/07/16 at 10:45; Stop 08/07/16 at 23:00 Active Scripts Active Guaifenesin-Codeine Syrup (Guaifenesin/Codeine Phosphate) 118 Ml Liquid 5 Ml PO Q6HRS Proair Respiclick (Albuterol Sulfate) 90 Mcg Aer.pow.ba 1 Puff IH PRN Q6HRS PRN Clarithromycin 500 Mg Tablet 1 Tab PO BID Allergies Allergies: Coded Allergies: No Known Drug Allergies (Unverified , 06/07/16) ROS General: No: Chills, Night Sweats, Fatigue, Malaise, Appetite PSYCHOLOGICAL ROS: No: Anxiety, Behavioral Disorder, Concentration difficultie , Decreased libido, Depression, Disorientation, Hallucinations, Hostility, Irritablity, Memory difficulties, Mood Swings, Obsessive thoughts, Physical abuse, Sexual abuse, Sleep disturbances, Suicidal ideation Eyes: No Blurry vision, No Decreased vision, No Double vision, No Dry eyes, No Excessive tearing, No Eye Pain, No Itchy Eyes, No Loss of vision, No Photophobia , No Scotomata, No Uses contacts, No Uses glasses HEENT: No: Heacaches, Visual Changes, Hearing change, Nasal congestion, Nasal discharge, Oral lesions, Sinus pain, Sore Throat, Epistaxis, Sneezing, Snoring, Tinnitus, Vertigo, Vocal changes ALLERGY AND IMMUNOLOGY: No: Hives, Insect Bite Sensitivity, Itchy/Watery Eyes, Nasal Congestion, Post Nasal Drip, Seasonal Allergies Hematological and Lymphatic: No: Bleeding Problems, Blood Clots, Blood Transfusions, Brusing, Night Sweats, Pallor, Swollen Lymph Nodes ENDOCRINE: No: Breast Changes, Galactorrhea, Hair Pattern Changes, Hot Flashes , Malaise/lethargy, Mood Swings, Palpitations, Polydipsia/polyuria, Skin Changes , Temperature Intolerance, Unexpected Weight Changes Breast: No New/Changing Breast Lumps, No Nipple changes, No Nipple discharge Respiratory: YES: Cough, Shortness of breath, No: Hemoptysis, Orthopnea, Pleuritic Pain, SOB with excertion, Sputum Changes , Stridor, Tachypnea, Wheezing Cardiovascular: No Chest Pain, No Palpitations, No Orthopnea, No Paroxysmal Noc. Dyspnea, No Edema, No Lt Headedness Gastrointestinal: No Nausea, No Vomiting, No Abdominal Pain, No Diarrhea, No Constipation, No Melena, No Hematochezia Genitourinary: No Dysuria, No Frequency, No Incontinence, No Hematuria, No Retention, No Discharge, No Urgency, No Pain, No Flank Pain Musculoskeletal: No Gait Disturbance, No Joint Pain, No Joint Stiffness, No Joint Swelling, No Muscle Pain, No Muscular Weakness, No Pain In:, No Swelling In: Neurological: No Behavorial Changes, No Bowel/Bladder ControlChng, No Confusion , No Dizziness, No Gait Disturbance, No Headaches, No Impaired Coord/balance, No Memory Loss, No Numbness/Tingling, No Seizures, No Speech Problems, No Tremors, No Visual Changes, No Weakness Skin: No Dry Skin, No Eczema, No Hair Changes, No Lumps, No Mole Changes, No Mottling, No Nail Changes, No Pruritus, No Rash, No Skin Lesion Changes, No Acne Physical Exam General: Alert, Oriented X3, No acute distress HEENT: Atraumatic, PERRLA Lungs: Other (bilateral diffuse crackles) Heart: Regular rate, Normal S1, Normal S2 Abdomen: Soft, No tenderness Extremities: No edema Skin: No significant lesion Neuro: Normal gait, Normal speech, Strength at 5/5 X4 ext, Normal tone, Sensation intact, Cranial nerves 3-12 NL MUSCULOSKELETAL: No deformity Vitals VITALS Vital Signs Date Time Temp Pulse Resp B/P (MAP) Pulse Ox O2 Delivery O2 Flow Rate FiO2 08/07/16 08:00 Room Air 08/07/16 07:16 96 08/07/16 07:00 97.5 65 18 125/79 (94) 97.5 Labs Labs Laboratory Tests Test 08/05/16 18:58 08/06/16 04:25 08/06/16 12:45 08/07/16 08:25 White Blood Count 6.8 x10^3/uL (4.0-11.0) 4.4 x10^3/uL (4.0-11.0) Red Blood Count 4.96 x10^6/uL (4.30-5.70) 4.78 x10^6/uL (4.30-5.70) Hemoglobin 14.1 g/dL (13.0-17.5) 13.6 g/dL (13.0-17.5) Hematocrit 41.4 % (39.0-53.0) 40.1 % (39.0-53.0) Mean Corpuscular Volume 83 fL (79-100) 84 fL (79-100) Mean Corpuscular Hemoglobin 28 pg (25-35) 29 pg (25-35) Mean Corpuscular Hemoglobin Concent 34 g/dL (31-37) 34 g/dL (31-37) Red Cell Distribution Width 13.4 % (11.5-14.5) 13.6 % (11.5-14.5) Platelet Count 306 x10^3/uL (140-400) 280 x10^3/uL (140-400) Neutrophils (%) (Auto) 76 % (31-73) 61 % (31-73) Lymphocytes (%) (Auto) 12 % (24-48) 20 % (24-48) Monocytes (%) (Auto) 11 % (0-9) 15 % (0-9) Eosinophils (%) (Auto) 1 % (0-3) 3 % (0-3) Basophils (%) (Auto) 1 % (0-3) 1 % (0-3) Neutrophils # (Auto) 5.2 x10^3uL (1.8-7.7) 2.7 x10^3uL (1.8-7.7) Lymphocytes # (Auto) 0.8 x10^3/uL (1.0-4.8) 0.9 x10^3/uL (1.0-4.8) Monocytes # (Auto) 0.7 x10^3/uL (0.0-1.1) 0.6 x10^3/uL (0.0-1.1) Eosinophils # (Auto) 0.1 x10^3/uL (0.0-0.7) 0.1 x10^3/uL (0.0-0.7) Basophils # (Auto) 0.0 x10^3/uL (0.0-0.2) 0.0 x10^3/uL (0.0-0.2) Sodium Level 140 mmol/L (136-145) 140 mmol/L (136-145) Potassium Level 3.7 mmol/L (3.5-5.1) 3.8 mmol/L (3.5-5.1) Chloride Level 104 mmol/L (98-107) 105 mmol/L (98-107) Carbon Dioxide Level 31 mmol/L (21-32) 29 mmol/L (21-32) Anion Gap 5 (6-14) 6 (6-14) Blood Urea Nitrogen 17 mg/dL (8-26) 17 mg/dL (8-26) Creatinine 1.0 mg/dL (0.7-1.3) 0.8 mg/dL (0.7-1.3) Estimated GFR (Cockcroft-Gault) 92.2 119.3 BUN/Creatinine Ratio 17 (6-20) Glucose Level 105 mg/dL (70-99) 81 mg/dL (70-99) Calcium Level 9.1 mg/dL (8.5-10.1) 8.6 mg/dL (8.5-10.1) Total Bilirubin 0.6 mg/dL (0.2-1.0) Aspartate Amino Transf (AST/SGOT) 23 U/L (15-37) Alanine Aminotransferase (ALT/SGPT) 22 U/L (16-63) Alkaline Phosphatase 69 U/L (46-116) Troponin I Quantitative < 0.017 ng/mL (0.000-0.055) XZ-[id number]-Type Natriuretic Peptide 178 pg/mL (0-124) Total Protein 8.2 g/dL (6.4-8.2) Albumin 3.2 g/dL (3.4-5.0) Albumin/Globulin Ratio 0.6 (1.0-1.7) Erythrocyte Sedimentation Rate 30 (0-15) Vancomycin Level Trough 6.9 mcg/mL (10.0-20.0) Vancomycin Last Dose Date 08/06/16 Vancomycin Last Dose Time 2100 Laboratory Tests Test 08/06/16 12:45 08/07/16 08:25 Erythrocyte Sedimentation Rate 30 (0-15) Vancomycin Level Trough 6.9 mcg/mL (10.0-20.0) Vancomycin Last Dose Date 08/06/16 Vancomycin Last Dose Time 2100 Images Images 1. Diffuse bilateral septal thickening with prominent appearing interstitium. Differential includes sarcoidosis, hypersensitivity pneumonitis, respiratory bronchiolitis, interstitial fibrosis with overlying interstitial infiltrates or pneumonia. 2. Mild bronchiectatic changes identified in the bilateral lungs. 3. Small bilateral hilar lymphadenopathy. Assessment/Plan Assessment/Plan 60-year-old male with a 2 month history of worsening shortness of breath on minimal exertion and nonproductive cough. Diffuse bilateral interstitial lung infiltrates on CT scan with mild mediastinal lymphadenopathy. Infiltrates are more pronounced in the lower lung dixon rather than the upper lobes. Will plan for a right VATS lung biopsy this afternoon. The risks, benefits and limitations of the procedure were explained to the patient who agreed to proceed. Informed consent has been obtained. Will send lung specimens for pathology, aerobic, anaerobic and fungal cultures, and AFB. Keep nothing by mouth Type and screen HEATH JONES MD August 07, 2016 11:04
[2016-08-07] MEDS ORDERED: PROPOFOL 20 ML IV ONE (12:38)
[2016-08-07] MEDS ORDERED: fentaNYL PF VIAL 100 MCG/2 ML VIAL ONE (12:38)
[2016-08-07] MEDS ORDERED: ROCURONIUM 50 MG/5 ML VIAL. ONE (12:38)
[2016-08-07] MEDS ORDERED: DEXAMETHASONE SOD PHOS 20 MG/5 ML VIAL. ONE (12:38)
[2016-08-07] MEDS ORDERED: LIDOCAINE 2% PF Vial for OR 5 ML VIAL. ONE (12:38)
[2016-08-07] MEDS ORDERED: MIDAZOLAM HCL/PF 2 MG/2 ML VIAL. ONE ×2 (12:39→13:14)
[2016-08-07] MEDS ORDERED: LIDOCAINE 1% PF 5 ML VIAL. ONE (12:54)
[2016-08-07] MEDS ORDERED: BUPIVACAINE MPF 0.5% 30 ML VIAL. ONE (13:09)
[2016-08-07] MEDS ORDERED: LIDOCAINE 1% 20 ML VIAL. ONE (13:09)
[2016-08-07] MEDS ORDERED: ROPIVacaine 0.5% PF 30 ML VIAL. ONE (13:24)
[2016-08-07] MEDS ORDERED: PHENYLEPHRINE in 0.9% NACL PF 1 MG/10 ML DISP.SYRIN. IV ONE (14:35)
[2016-08-07] MEDS ORDERED: ONDANSETRON PF 4 MG/2 ML VIAL. ONE (14:59)
[2016-08-07] MEDS ORDERED: NEOSTIGMINE METHYLSULFATE 5 MG/5 ML SYRINGE. ONE (15:00)
[2016-08-07] MEDS ORDERED: GLYCOPYRROLATE 1 MG/5 ML VIAL. ONE (15:00)
[2016-08-07] MEDS ORDERED: SEVOFLURANE 61 TO 120 MINUTES. IH ONE (15:24)
--- NOTE | 2016-08-07 15:25 | PDOC ---
BRIEF OPERATIVE NOTE Date: August 07, 2016 Pre-Op Diagnosis Interstitial lung disease Post-Op Diagnosis Interstitial lung disease Procedure Performed Right video-assisted thoracoscopic surgery, pneumonolysis, lower lobe wedge resection Surgeon Heath Jones MD Padding Gluer ZACK Fernandez Anesthesiologist Dr Lei Anesthesia Type: General Blood Loss 10 mls IV Fluid 500 mls Urine Output N/A Specimens Obtained Right lower lobe wedge Findings Friable lung with interstitial infiltrates Complications None Additional Remarks Multiple and dense posterior and lateral pleural adhesions 24 Fr straight chest tube HEATH JONES MD August 07, 2016 15:25
--- NOTE | 2016-08-07 15:29 | PDOC4 ---
Operative Note Operative Note Date August 07, 2016 Preoperative diagnosis Interstitial lung disease Postoperative diagnosis Interstitial lung disease Procedure Right video-assisted thoracoscopic surgery, pneumonolysis, lower lobe wedge resection Surgeon Heath Jones MD Recreation Professor ZACK Fernandez Anesthesiologist Ras Lei MD Anesthesia General Blood loss 10 mls IV fluids 500 mls Urine output N/A Specimens Right lower lobe wedge Findings Friable lung with interstitial infiltrates, predominant in the right middle and lower lobes Complications None Additional Remarks Multiple and dense posterior and lateral pleural adhesions 24 Fr straight chest tube Indication Mr Bautista is a 60-year-old male with a lifelong history of smoking, who presented with a two-month history of increasing shortness of breath and nonproductive cough. He was admitted to the hospital in May for presumed pneumonia. His symptoms have never really resolved, and have actually recently worsened. The patient also has a history of smoking crack cocaine. A CT of the chest has demonstrated bilateral interstitial infiltrates with some mediastinal lymphadenopathy, consistent with interstitial lung disease vs chronic infection vs granulomatous disease. A right VATS lung biopsy was indicated. The risks, benefits and limitations of the procedure The patient who agreed to proceed. Informed consent was obtained. Operation The patient was seen in the preoperative area where his ID was confirmed using 2 unique identifies. The right chest was marked. The patient was transferred to the operating room and initially placed supine on the operating table. Anesthesia was induced by the anesthesiologist, and the airway was secured with a double lumen ET tube. An arterial line was also inserted. The patient was then placed in the left lateral decubitus position with the right side up. The right chest was prepped and draped in the usual sterile surgical fashion. A timeout was then performed. The patient has been receiving therapeutic antibiotics. A 1 cm port incision was made in the seventh intercostal space between the middle and posterior axillary line. The left lung was isolated and the 30 thoracoscope was inserted. Two additional ports were placed in the fifth intercostal space at the anterior axillary line and the fifth intercostal space at the posterior axillary line. Inspection of the pleural cavity demonstrated multiple adhesions which were predominant in the posterior and lateral chest. These were carefully divided with electrocautery. Once the lung was freed, a diseased appearing basilar segment of the right lower lobe was grasped with care. A wedge resection of this segment was performed using three blue loads of the endostapler. The specimen was retrieved and sent to pathology. A piece was also sent to microbiology for Gram stain, aerobic, anaerobic and fungal cultures and AFB. The pleural cavity was examined for bleeding and none was identified. A 24 Uzbek straight chest tube was then inserted through the anterior port site, and placed in the posterior apical position. The chest tube was secured with a #1 silk stitch. An additional U stitch pursestring was placed around the chest tube site using a #1 silk. The right lung was then fully inflated. A mixture of 1% lidocaine with 0.5% Marcaine were injected in all port incisions. The two remaining ports were closed with 0 Vicryl for the deep layers, 2-0 Vicryl for the subcutaneous tissue and 4-0 Monocryl for the epidermis. Sterile dressing was applied over the chest tube and Dermabond over the remaining incisions. Anesthesia was reversed, the patient was extubated and transferred to the PACU in stable condition having tolerated the procedure well. HEATH JONES MD August 07, 2016 15:29
[2016-08-07] MEDS: MORPHINE SULFATE 2 MG/ML DISP.SYRIN. IV PRN ×2 (16:10→16:27)
--- NOTE | 2016-08-07 16:13 | RAD ---
Portable chest, 08/07/2016: History: Postop evaluation Comparison is made to a study from 08/05/2016. The heart is within normal limits in size. A right chest tube is now in place. No significant pneumothorax is seen. There is mild chest wall emphysema laterally on the right. There are ongoing moderate bilateral pulmonary infiltrates. Basilar pulmonary opacities have worsened. There is no evidence of pleural fluid. IMPRESSION: 1. A right chest tube is in place with no evidence of pneumothorax. 2. Moderate ongoing bilateral pulmonary infiltrates with interval worsening in the lung bases. A lesser depth of inspiration may be concerning for this appearance.
[2016-08-07] MEDS ORDERED: SENNOSIDES 8.6 MG TABLET PO PRN (16:15)
[2016-08-07] MEDS ORDERED: ONDANSETRON PF 4 MG/2 ML VIAL. IV PRN (16:15)
[2016-08-07] MEDS ORDERED: KETOROLAC TROMETHAMINE 30 MG/ML INJ. ONE (16:20)
[2016-08-07] MEDS: HYDROmorphone 2 MG/ML VIAL IV PRN ×4 (16:32→17:09)
[2016-08-07] MEDS ORDERED: KETOROLAC 15 MG/ML VIAL. IV PRN (16:45)
--- NOTE | 2016-08-07 16:52 | RAD ---
Examination: Portable chest History: History of chest tube removal, VATS procedure Comparison: 08/07/2016. Findings: The cardiomediastinal grossly appears unremarkable. Diffuse bilateral interstitial lung markings likely interstitial fibrosis similar to prior exam. Interval removal of right-sided chest tube. Obvious pneumothorax is not identified. Mild right chest wall emphysema changes identified. Impression: 1. Diffuse bilateral interstitial lung markings likely interstitial fibrosis similar to prior exam. 2. Interval removal of right-sided chest tube. No evidence of obvious pneumothorax. 3. Mild right chest wall emphysematous changes.
[2016-08-07] MEDS ORDERED: KETOROLAC TROMETHAMINE 30 MG/ML INJ. IV PRN (18:00)
[2016-08-07 19:00] VITALS: BP 123/83
[2016-08-07 22:37] VITALS: BP 104/64
[2016-08-08] MEDS: VANCOMYCIN 1 GM in IV NORMAL SALINE 250ML 250 ML IV SCH ×3 (00:48→16:55)
[2016-08-08] MEDS: HYDROcodone/APAP 7.5/325MG 1 TAB TABLET PO PRN ×3 (01:57→20:59)
[2016-08-08 03:00] VITALS: BP 133/80
[2016-08-08] MEDS: CEFEPIME HCL 2 GM in IV NORMAL SALINE 100ML 100 ML IV SCH ×3 (05:01→20:59)
[2016-08-08 07:00] VITALS: BP 120/79
[2016-08-08] MEDS: IPRATRPIUM/ALBUTEROL 0.5/2.5MG 3 ML NEBU. NEB SCH ×4 (07:52→19:43)
--- NOTE | 2016-08-08 08:09 | RAD ---
Portable chest, 08/08/2016: History: Interstitial lung disease, postop evaluation Comparison is made to yesterday's study at 4:42 PM. There is moderate subcutaneous emphysema laterally on the right extending into the lower neck. This has increased since yesterday's study. A tiny right apical pneumothorax is now evident. Diffuse interstitial type pulmonary opacities are unchanged. The heart size is normal. No pleural fluid is evident. IMPRESSION: 1. Increasing subcutaneous emphysema on the right.. 2. Tiny right apical pneumothorax. 3. Unchanged moderate bilateral interstitial opacities.
--- NOTE | 2016-08-08 10:05 | PDOC ---
PULMONARY PROGRESS NOTES Subjective no soa s/p VAT 08/07 Vitals Vital Signs Date Time Temp Pulse Resp B/P (MAP) Pulse Ox O2 Delivery O2 Flow Rate FiO2 08/08/16 07:53 96 Room Air 08/08/16 03:00 97.7 67 20 133/80 (97) 97.7 08/07/16 17:21 2 General: Alert, No acute distress Cardiovascular: S1 Abdomen: Soft Neuro Exam: Alert Extremities: No Edema, Other (crepitus right cw) Skin: Warm Labs Laboratory Tests Test 08/06/16 12:45 08/07/16 08:25 Erythrocyte Sedimentation Rate 30 (0-15) Vancomycin Level Trough 6.9 mcg/mL (10.0-20.0) Vancomycin Last Dose Date 08/06/16 Vancomycin Last Dose Time 2100 Medications Active Scripts Medications Dose Route/Sig Max Daily Dose Days Date Category Guaifenesin-Codeine Syrup (Guaifenesin/Codeine Phosphate) 118 Ml Liquid 5 Ml PO Q6HRS 06/07/16 Rx Proair Respiclick (Albuterol Sulfate) 90 Mcg Aer.pow.ba 1 Puff IH PRN Q6HRS PRN 06/07/16 Rx Clarithromycin 500 Mg Tablet 1 Tab PO BID 06/07/16 Rx Impression . 1. Persistent dyspnea and cough for the last 2 months with persistent interstitial infiltrates since 05/2016. Ct chest with diffuse interstitial lung disease, mild hilar adenopathy. The following would be the differential diagnosis: a. Possibility of a diffuse alveolar damage related to inhalation of crack cocaine b. Possible stage II sarcoidosis 2. Clinically, unlikely other connective tissue disease related to interstitial lung disease. 3. Less likely pneumonia. 4. s/p VAT 08/07, 5. Tiny PTX and sc air right side Plan . 1. Monitor cxr for another day 2. follow results for lung biopsy 3. sed rate not so high 4. The patient no longer does crack cocaine. 5. antibiotics can be weaned off 6. repeat cxr in am. If stable, possible dc home in am d/w DEISY He MD August 08, 2016 10:05
[2016-08-08 11:00] VITALS: BP 102/61
[2016-08-08] MEDS: SENNOSIDES 8.6 MG TABLET PO SCH ×2 (11:30→20:58)
--- NOTE | 2016-08-08 13:32 | PDOC ---
Progress Note Subjective Subjective Doing very well, no issues. On room air, denies shortness of breath, no pain. Some minimal drainage from the previous chest tube site. Minimal subcutaneous emphysema on today's chest x-ray, right lung fully expanded. ROS ROS No nausea No vomiting No SOB No pain No rash Vital Sign Vital Signs Vital Signs Date Time Temp Pulse Resp B/P (MAP) Pulse Ox O2 Delivery O2 Flow Rate FiO2 08/08/16 12:22 99 Room Air 08/08/16 11:00 98.4 68 20 102/61 (75) 98.4 08/07/16 17:21 2 Physical Exam PHYSICAL EXAM GENERAL: NAD, Alert HEENT: PERRL, OC/OP NECK: Supple, no JVD, no LN LUNGS: Crackles, port sites: Clean and intact. Some minimal serous drainage from previous chest tube site HEART: S1S2, no gallop, no murmur ABD: Soft, NT, no organomegaly, no rebound EXT: No edema, no cyanosis [employer] G[employer] ENGINEER: Alert, oriented x 3, no focal neurologic deficit SKIN: No rash IV: ok Objective Assessment POD#1, s/p R VATS lung biopsy. Doing very well, no issues. On room air, denies shortness of breath, no pain. Some minimal drainage from the previous chest tube site. Minimal subcutaneous emphysema on today's chest x-ray, right lung fully expanded. Pathology pending. Subcutaneous emphysema will resolve, no reason to be concerned whatsoever. Plan Plan of Care OK to DC home today from surgical standpoint Follow-up in clinic in 3 weeks with chest x-ray beforehand Will apply Dermabond on to leaking port site HEATH JONES MD August 08, 2016 13:32
[2016-08-08 14:59] VITALS: BP 124/75
--- NOTE | 2016-08-08 16:31 | PDOC ---
SUBJECTIVE Subjective feeling ok, no increase SOB, mild cough , minimal pain OBJECTIVE Vital Signs Vital Signs Date Time Temp Pulse Resp B/P (MAP) Pulse Ox O2 Delivery O2 Flow Rate FiO2 08/08/16 15:51 99 Room Air 08/08/16 14:59 98.1 91 20 124/75 (91) 90 Room Air 98.1 08/08/16 12:22 99 Room Air 08/08/16 11:00 98.4 68 20 102/61 (75) 99 Room Air 98.4 08/08/16 07:53 96 Room Air 08/08/16 07:38 Room Air 08/08/16 07:00 97.7 77 20 120/79 (93) 97 Room Air 97.7 08/08/16 03:00 97.7 67 20 133/80 (97) 100 Room Air 97.7 08/08/16 01:57 18 98 Room Air 08/07/16 22:37 97.9 63 20 104/64 (77) 98 Room Air 97.9 08/07/16 20:10 Room Air 08/07/16 19:59 Room Air 08/07/16 19:00 95.5 81 20 123/83 (96) 97 Room Air 95.5 08/07/16 17:21 98.2 72 18 134/81 100 Nasal Cannula 2 98.2 08/07/16 17:09 18 100 Nasal Cannula 2.0 08/07/16 17:06 74 18 150/89 100 Nasal Cannula 2 08/07/16 16:56 16 100 Nasal Cannula 2.0 08/07/16 16:51 72 22 154/98 Nasal Cannula 2 08/07/16 16:44 16 93 Room Air 08/07/16 16:36 80 24 141/85 100 Simple Mask 10 08/07/16 16:32 23 93 Simple Mask 5.0 I & O Intake and Output 08/08/16 07:00 Intake Total 2610 ml Balance 2610 ml Intake Oral 0 ml IV Total 2610 ml # Voids 1 PHYSICAL EXAM Physical Exam lungs decrease BS, incision without drainage heart RRR abd soft ext no edema ASSESSMENT/PLAN Assessment/Plan s/p open lung Bx , small pneumo and SQ emphysema continue to monitor recheck CXR in AM, discussed with dr. Rose Problems: NAILA WYNNE MD August 08, 2016 16:31
[2016-08-08 19:00] VITALS: BP 124/75
[2016-08-08 23:00] VITALS: BP 142/82
[2016-08-09] MEDS: VANCOMYCIN 1 GM in IV NORMAL SALINE 250ML 250 ML IV SCH (01:33)
[2016-08-09] MEDS: HYDROcodone/APAP 7.5/325MG 1 TAB TABLET PO PRN (02:34)
[2016-08-09 03:00] VITALS: BP 148/87
[2016-08-09] MEDS: CEFEPIME HCL 2 GM in IV NORMAL SALINE 100ML 100 ML IV SCH (05:31)
[2016-08-09 07:00] VITALS: BP 137/93
[2016-08-09] MEDS: IPRATRPIUM/ALBUTEROL 0.5/2.5MG 3 ML NEBU. NEB SCH ×2 (07:07→11:07)
--- NOTE | 2016-08-09 08:49 | PDOC ---
SUBJECTIVE Subjective clinically stable and hardly feeling any pain, no increase SOB OBJECTIVE Vital Signs Vital Signs Date Time Temp Pulse Resp B/P (MAP) Pulse Ox O2 Delivery O2 Flow Rate FiO2 08/09/16 08:00 Room Air 08/09/16 07:10 97 Nasal Cannula 2.0 08/09/16 03:30 18 90 Room Air 2.0 08/09/16 03:00 97.5 106 20 148/87 (107) 90 Room Air 97.5 08/09/16 02:34 18 100 Room Air 2.0 08/08/16 23:00 97.5 94 20 142/82 (102) 100 Room Air 97.5 08/08/16 20:59 18 97 Room Air 2.0 08/08/16 19:57 97 Room Air 08/08/16 19:05 Room Air 08/08/16 19:00 97.9 86 20 124/75 (91) 90 Room Air 97.9 08/08/16 16:55 Room Air 08/08/16 15:51 99 Room Air 08/08/16 14:59 98.1 91 20 124/75 (91) 90 Room Air 98.1 08/08/16 12:22 99 Room Air 08/08/16 11:00 98.4 68 20 102/61 (75) 99 Room Air 98.4 I & O Intake and Output 08/09/16 07:00 Intake Total 1340 ml Balance 1340 ml Intake Oral 640 ml IV Total 700 ml # Voids 9 # Bowel Movements 1 PHYSICAL EXAM Physical Exam lungs with coarse BS bilaterally Heart RRR abd soft ext no edema ASSESSMENT/PLAN Assessment/Plan lung with full expansion , still with SQ emphysema , no SOB , can go home and F/ U lung Bx results out pt Problems: NAILA WYNNE MD August 09, 2016 08:49
--- NOTE | 2016-08-09 09:05 | RAD ---
Portable chest, 08/09/2016: History: Postop evaluation, interstitial lung disease Comparison is made to yesterday's exam. The previously seen tiny right apical pneumothorax is no longer evident. There are moderate ongoing bilateral reticulonodular pulmonary opacities which are unchanged. There is slight blunting of the right lateral costophrenic angle suggesting a tiny amount of pleural fluid. The heart size is unchanged. There is moderate unchanged subcutaneous emphysema laterally on the right. IMPRESSION: 1. No significant residual pneumothorax. 2. Tiny right pleural effusion. 3. Unchanged moderate reticulonodular pulmonary opacities compatible with interstitial lung disease.
[2016-08-09] MEDS ORDERED: IPRA3AMP NEB (09:24)
--- NOTE | 2016-08-09 09:33 | PDOC3 ---
Discharge Summary* Date of Admission: August 05, 2016 Date of Discharge: August 09, 2016 Admitting Diagnosis Problems Medical Problems: (1) HCAP (healthcare-associated pneumonia) Status: Acute Final Diagnosis 1. Bilateral infiltrates,interstitial lung disease s/p open lung Bx results pending 2. Chronic obstructive pulmonary disease. 3. Increasing shortness of breath and cough. 4. small pneumotthorax and SQ emphysema expected post open lung Bx Problems Medical Problems: (1) HCAP (healthcare-associated pneumonia) Status: Acute CONSULTS pulmonary , Thoracic surgery Procedures CXR, CT scan chest, open lung bx Brief Hospital Course Mr. Bautista is a 60 old [sex] who presented with [ ] Disposition/Orders: D/C to Home CONDITION AT DISCHARGE: Improved, Stable Diet: Regular Scheduled Clarithromycin (Clarithromycin), 1 TAB PO BID Guaifenesin/Codeine Phosphate (Guaifenesin-Codeine Syrup), 5 ML PO Q6HRS Ipratropium/Albuterol Sulfate (Duoneb 0.5-3(2.5) Mg/3 Ml), 3 ML NEB RTQID Scheduled PRN Albuterol Sulfate (Proair Respiclick), 1 PUFF IH PRN Q6HRS PRN for SHORTNESS OF BREATH FOLLOW UP APPOINTMENT: Dr. Rose in 3-4 days for results of bx Dr. Martines 7-10 days Time Spent Total time spent with patient [] minutes for coordination of care, counseling, and education. NAILA WYNNE MD August 09, 2016 09:33
--- NOTE | 2016-08-09 10:01 | PDOC ---
PULMONARY PROGRESS NOTES Subjective no soa s/p VAT 08/07 Vitals Vital Signs Date Time Temp Pulse Resp B/P (MAP) Pulse Ox O2 Delivery O2 Flow Rate FiO2 08/09/16 08:00 Room Air 08/09/16 07:10 97 2.0 08/09/16 07:00 97.7 89 137/93 (108) 97.7 08/09/16 03:30 18 General: Alert, No acute distress Cardiovascular: S1 Abdomen: Soft Neuro Exam: Alert Extremities: No Edema, Other (crepitus right cw) Skin: Warm Medications Active Scripts Medications Dose Route/Sig Max Daily Dose Days Date Category Guaifenesin-Codeine Syrup (Guaifenesin/Codeine Phosphate) 118 Ml Liquid 5 Ml PO Q6HRS 06/07/16 Rx Proair Respiclick (Albuterol Sulfate) 90 Mcg Aer.pow.ba 1 Puff IH PRN Q6HRS PRN 06/07/16 Rx Clarithromycin 500 Mg Tablet 1 Tab PO BID 06/07/16 Rx Impression . 1. Persistent dyspnea and cough for the last 2 months with persistent interstitial infiltrates since 05/2016. Ct chest with diffuse interstitial lung disease, mild hilar adenopathy. The following would be the differential diagnosis: a. Possibility of a diffuse alveolar damage related to inhalation of crack cocaine b. Possible stage II sarcoidosis 2. Clinically, unlikely other connective tissue disease related to interstitial lung disease. 3. Less likely pneumonia. 4. s/p VAT 08/07, 5. Tiny PTX and sc air right side, improved today Plan . 1. cxr with resolved PTX 2. follow results for lung biopsy as OP 3. sed rate not so high 4. The patient no longer does crack cocaine. 5. antibiotics can be weaned off 6. dc home today. f/u next week with me d/w DEISY He MD August 09, 2016 10:01
--- NOTE | 2016-08-10 12:37 | PATHOLOGY ---
PATHOLOGY REPORT * * * * * * * * FINAL DIAGNOSIS: Lung, right, wedge biopsy: Final diagnosis pending consultation with pathologists at the [facility]. REPORT ELECTRONICALLY SIGNED BY: Jerica Parra M.D. DATE/TIME: 08/10/2016 12:36 * * * * * * * * GROSS PATHOLOGY: The specimen is received in formalin labeled "Maryuri Bautista right lung biopsy". Received is a wedge resection of blue-mccarthy lung tissue with a stapled margin of resection measuring 5.5 x 2.8 x 1.0 cm in greatest dimensions. The luke are removed and the new margin is inked black. Sectioning reveals pale martinez to mccarthy-martinez cut surfaces. No distinct nodules or lesions are noted grossly. Alternating sections are submitted in cassettes A1 through A3. (CAA; 08/09/2016) INITIAL CPT CODE(S): A; 03728 Professional services performed by [facility], [facility] [place] [address]. Technical services performed by [facility], [address] [place] [address], [address] [address]. SPECIMEN(S) RECEIVED: A.Right lung biopsy CLINICAL HISTORY: Abnormal chest x-ray, cough, dyspnea, diffuse bilateral interstitial lung infiltrates PATIENT: MARYURI BAUTISTA /AGE: 9 1955 (Age: 60) PATIENT #: [id number] ALT CASE #: SPECIMEN COLLECTION DATE: 08/07/2016 SPECIMEN RECEIVED DATE: 08/08/2016 [facility] - [address] [place] [address] - PHONE: [phone] * * * END OF REPORT * * *
== END 2016-08-09 11:15 | disposition home or self-care (01) | DRG 164 ==
LOC: ER 19:50 → 5 NORTH 19:51
PROVIDERS: ADMIT Internal Medicine; ATTEND Internal Medicine
PROC: 0BNF4ZZ Release Right Lower Lung Lobe, Percutaneous Endoscopic Approach (ICD-10-PCS; 2016-08-07)
PROC: 0BBF4ZZ Excision of Right Lower Lung Lobe, Percutaneous Endoscopic Approach (ICD-10-PCS; principal; 2016-08-07 14:00)
DX: J84.9 Interstitial pulmonary disease, unspecified (principal); T79.7XXA Traumatic subcutaneous emphysema, initial encounter; J44.0 Chronic obstructive pulmonary disease with (acute) lower respiratory infection; J93.9 Pneumothorax, unspecified; R59.0 Localized enlarged lymph nodes; J44.9 Chronic obstructive pulmonary disease, unspecified; Z89.021 Acquired absence of right finger(s); Z87.891 Personal history of nicotine dependence; Z87.01 Personal history of pneumonia (recurrent)
CPT/HCPCS: 36415; 71010; 71020; 71260; 80048; 80053; 80202; 83880; 84484; 85027; 85651; 86850; 86900; 86901; 87071; 87075; 87102; 87116; 87205; 88307; 93005; 94250; 94640; 94760; 96365; J0692; J1100; J1170; J1885; J2250; J2270; J2370; J2405; J2704; J2710; J2795; J3010; J3370; J3490; J7040; J7050; J7120; J7620; Q9967; 99285-25; J7030

== ENCOUNTER → 2016-08-24 | Outpatient (CLI) | payer BC ==
[2016-08-09 07:00] VITALS: BP 137/93
[~2016-08-24] MED LIST changes: +IPRA3AMP NEB
--- NOTE | 2016-08-24 13:42 | RAD ---
Indication cough. Shortness of air. PA and lateral views of the chest were obtained. Comparison is made to an examination 08/09/2016. Note is made of a CT examination of the chest 08/06/2016. Infiltrates in both lungs, compatible with interstitial lung disease is seen and appears similar. Slight blunting of the right costophrenic angle is noted also similar. A definite acute finding is not seen. There is no pneumothorax. Subcutaneous emphysema along the right chest wall seen previously has resolved. IMPRESSION: Chronic interstitial infiltrates. No significant change
== END | disposition home or self-care (01) ==
LOC: RAD 12:23
PROVIDERS: ATTEND Thoracic Surgery (Cardiothoracic Vascular Surgery)
DX: J20.9 Acute bronchitis, unspecified (principal); R91.8 Other nonspecific abnormal finding of lung field
CPT/HCPCS: 71020

== ENCOUNTER → 2016-10-01 | Outpatient (CLI) | payer BC ==
[~2016-10-01] MED LIST changes: +IOHEXOL 300 MG/ML 75 ML VIAL IV ONE
--- NOTE | 2016-10-01 15:12 | RAD ---
CT of the chest with contrast, 10/01/2016: History: Shortness of breath, cough, interstitial lung disease Comparison is made to a study from 08/06/2016. There are ongoing abnormal pulmonary opacities. These opacities are predominantly interstitial in nature although there are also faint centrilobular opacities. The overall process has improved slightly. No new consolidation or mass is identified. There is no evidence of pleural fluid. There are calcified mediastinal and right hilar lymph nodes. Mildly prominent lymphoid tissue at the leticia has regressed. There is a 10 mm pretracheal lymph node considered to be of borderline size. It measured 13 mm on the previous study. No new adenopathy is seen. The thoracic aorta is unremarkable. The heart is of normal size. IMPRESSION: 1. Predominantly interstitial bilateral pulmonary opacities have improved since 08/06/2016. Diagnostic considerations include chronic interstitial lung disease, hypersensitivity pneumonia or respiratory bronchiolitis. 2. Resolving mild mediastinal and hilar adenopathy. PQRS Compliance Statement: One or more of the following individualized dose reduction techniques were utilized for this examination: 1. Automated exposure control 2. Adjustment of the mA and/or kV according to patient size 3. Use of iterative reconstruction technique
== END | disposition home or self-care (01) ==
LOC: CT 11:27
PROVIDERS: ATTEND Internal Medicine Critical Care Medicine
DX: J84.9 Interstitial pulmonary disease, unspecified (principal); R06.02 Shortness of breath
CPT/HCPCS: 71260; Q9967

== ENCOUNTER 2017-08-27 09:47 | Emergency (ER) | payer BC ==
[2017-08-27 10:41] LABS: ADD MAN DIFF? NO
[2017-08-27 10:48] LABS: BASO # 0.1 x10^3/uL (0.0-0.2); BASO % 1 % (0-3); EOS # 0.1 x10^3/uL (0.0-0.7); EOS % 2 % (0-3); HEMATOCRIT 43.4 % (39.0-53.0); HEMOGLOBIN 14.3 g/dL (13.0-17.5); LYMPH % 13 % (24-48); MEAN CORPUSCULAR HEMOGLOBIN 28 pg (25-35); MEAN CORPUSCULAR HGB CONC 33 g/dL (31-37); MEAN CORPUSCULAR VOLUME 85 fL (79-100); MONO # 0.9 x10^3/uL (0.0-1.1); MONO % 12 % (0-9); NEUT # 5.4 x10^3uL (1.8-7.7); NEUT % 73 % (31-73); PLATELET COUNT 270 x10^3/uL (140-400); RED CELL DISTRIBUTION WIDTH 13.3 % (11.5-14.5); WHITE BLOOD COUNT 7.4 x10^3/uL (4.0-11.0)
[2017-08-27 10:59] LABS: URIC ACID 7.2 mg/dL (3.5-7.2)
== END 2017-08-27 12:03 | disposition home or self-care (01) ==
LOC: ER 09:47
DX: M10.9 Gout, unspecified (principal); M79.675 Pain in left toe(s)
CPT/HCPCS: 36415; 73630; 84550; 85025; 99285

== ENCOUNTER → 2019-10-27 | Outpatient (CLI) | payer BC ==
[2017-08-27 10:05] VITALS: BP 164/92
[~2019-10-27] MED LIST changes: +CLAR-7 PO; -CLAR500T PO; -IOHEXOL 300 MG/ML 75 ML VIAL IV ONE; -IPRA3AMP NEB; +IPRA3AMP29 NEB; +METH4TAB2 PO
--- NOTE | 2019-10-27 17:12 | KCIC ---
CHEST PA LATERAL History: Reason: INTERSTITIAL LUNG DISEASE, NO CURRENT SX / Spl. Instructions: / History: Comparison: August 24, 2016 radiograph Findings: Mild interstitial thickening, right base greater than left. No consolidation. Postop changes right lower lung. No pneumothorax. Unchanged heart size. S-shaped curvature of the thoracolumbar spine. No pleural effusion. Impression: 1. Bilateral interstitial thickening, related to known chronic interstitial lung disease. Overall findings are decreased compared to 2017 Electronically signed by: Braulio Hollis DO (10/27/2019 5:08 PM) [facility]
--- NOTE | 2019-10-27 17:13 | KCIC ---
FOOT RIGHT 3V History: Reason: BUNION RT FOOT, PAIN/SWELLING IN GREAT TOE, NO INJURY / Spl. Instructions: / History: Technique: 3 views right foot. Comparison: None. 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 Normal alignment. No fracture. Small plantar calcaneal spur. Impression: 1. 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 Electronically signed by: Braulio Hollis DO (10/27/2019 5:11 PM) [facility]
== END | disposition home or self-care (01) ==
LOC: KCIC 10:06
PROVIDERS: ATTEND Family Medicine
DX: M19.072 Primary osteoarthritis, left ankle and foot (principal); M21.611 Bunion of right foot; M43.8X5 Other specified deforming dorsopathies, thoracolumbar region; M25.774 Osteophyte, right foot; M77.31 Calcaneal spur, right foot; J84.9 Interstitial pulmonary disease, unspecified
CPT/HCPCS: 71046; 73630

== ENCOUNTER → 2019-11-25 | Outpatient (CLI) | payer BC ==
[2017-08-27 10:05] VITALS: BP 164/92
== END | disposition home or self-care (01) ==
LOC: LAB 09:30
PROVIDERS: ATTEND Internal Medicine Gastroenterology
DX: Z01.812 Encounter for preprocedural laboratory examination (principal); Z20.828 Contact with and (suspected) exposure to other viral communicable diseases
CPT/HCPCS: U0003-CS

== ENCOUNTER → 2019-11-27 | Day surgery (SDC) | payer BC ==
[~2019-11-27] MED LIST changes: +IV RINGERS,LACTATED 1000ML 1,000 ML IV SCH; +LIDOCAINE 2% PF 5 ML VIAL. ONE; +PROPOFOL 10 MG/ML (20ML) VIAL. IV ONE
[2019-11-27 08:42] VITALS: BP 132/78
== END | disposition home or self-care (01) ==
LOC: ENDOS 06:44
PROVIDERS: ATTEND Internal Medicine Gastroenterology
DX: Z12.11 Encounter for screening for malignant neoplasm of colon (principal); K64.0 First degree hemorrhoids; K57.30 Diverticulosis of large intestine without perforation or abscess without bleeding; Z72.89 Other problems related to lifestyle; Z79.899 Other long term (current) drug therapy; Z82.49 Family history of ischemic heart disease and other diseases of the circulatory system
CPT/HCPCS: 45378; J2704